=== PATIENT | male | born 1940 | race Caucasian/White ===

== ENCOUNTER 2018-07-20 11:02 | Inpatient (IN) ==
--- NOTE | 2018-07-20 11:38 | ED ---
HPI General Chief Complaint: Respiratory Symptoms Stated Complaint: sob x 3 weeks Time Seen by Provider: 07/20/18 11:19 History of Present Illness HPI Narrative: Patient is a 77-year-old male with history of thyroid disease and high blood pressure, has elevated blood pressure for 1 week, 2 days over than 200. Since yesterday patient noticed shortness of breath together with bilateral leg swelling patient believes his left leg is more swollen than the right. Patient denies COPD or CHF. He is able to speak full sentences, not in obvious distress. Patient denies fever, chest pain. Related Data Home Medications Medication Instructions Recorded Confirmed allopurinol 300 mg PO DAILY 07/20/18 07/20/18 atenolol 25 mg PO DAILY 07/20/18 07/20/18 indomethacin 25 mg PO DAILY PRN 07/20/18 07/20/18 lisinopril [Zestril] 50 mg PO DAILY 07/20/18 07/20/18 omeprazole 20 mg PO DAILY 07/20/18 07/20/18 Allergies Allergy/AdvReac Type Severity Reaction Status Date / Time tetanus and diphtheria Allergy Mild Anaphylaxis Verified 07/20/18 11:07 toxoids codeine Allergy Swelling Verified 07/20/18 11:10 Review of Systems ROS: all other systems reviewed are negative Respiratory Reports dyspnea PMFSH Surgical History Surgical History H/O shoulder surgery (Acute) History of esophagogastroduodenoscopy (Acute) Family History Family History Father Family history of heart disease Mother Family history of heart disease Social History Social History Substance History: No History of Abuse Second Hand Smoke Exposure: No Smoking Status: Former smoker Tobacco Type: Cigarettes How Often Do You Have a Drink Containing Alcohol: Monthly or less Recent Travel in [facility] within the Last 8 Weeks: No Recent Out of Country Travel within the Last 8 Weeks: No Exam Narrative Exam Narrative: GENERAL: 77-year-old male in no apparent distress. SKIN: Focused skin assessment warm/dry. HEAD: Atraumatic. Normocephalic. EYES: Pupils equal and round. No scleral icterus. No injection or drainage. ENT: No nasal bleeding or discharge. Mucous membranes pink and moist. NECK: Trachea midline. No JVD. CARDIOVASCULAR: Regular rate and rhythm. No murmur appreciated. RESPIRATORY: No accessory muscle use. No wheezing, no obvious rhonchi, minimal scattered rales. GASTROINTESTINAL: Abdomen soft, non-tender, nondistended. Hepatic and splenic margins not palpable. MUSCULOSKELETAL: No obvious deformities. No clubbing. No cyanosis. No edema. NEUROLOGICAL: Awake and alert. No obvious cranial nerve deficits. Motor grossly within normal limits. Normal speech. PSYCHIATRIC: Appropriate mood and affect; insight and judgment normal. Course Initial Documented Vital Signs Temperature 97.5 F L 07/20/18 11:07 Pulse Rate 79 07/20/18 11:07 Respiratory Rate 20 07/20/18 11:07 Blood Pressure 200/79 H 07/20/18 11:07 Pulse Oximetry 98 07/20/18 11:07 Last Documented Vital Signs Temperature 97.5 F L 07/20/18 11:07 Pulse Rate 65 07/20/18 14:57 Respiratory Rate 18 07/20/18 14:57 Blood Pressure 167/69 H 07/20/18 14:57 Pulse Oximetry 98 07/20/18 14:57 Medical Decision Making MDM Narrative Medical decision making narrative: Patient is a 77-year-old male with history of high blood pressure, presented with dyspnea, will have cardiac workup and PE workup ordered. Reevaluation is pending. 1500: Labs noted, first set of troponin is negative, CAT scan did not show any blood clots, patient has new onset of congestive heart failure, BNP is over than 300, hemoglobin is 6.9, his stool is guaiac positive. Patient will be admitted to medicine for further evaluation and treatment. Blood transfusion ordered. Protonix given. Medical Screen Exam Complete: Yes Emergency Medical Condition: Yes Lab Data Result diagrams: 07/20/18 11:45 07/20/18 11:45 Lab Results 07/20/18 07/20/18 07/20/18 Range/Units 11:45 11:45 11:45 CBC w Diff Slide review pending WBC 7.6 (4.0-11.0) th/mm3 RBC 3.10 L (4.50-5.90) mil/mm3 Hgb 6.9 L* (13.0-17.0) gm/dL Hct 22.8 L (39.0-51.0) % MCV 73.8 L (80.0-100.0) fL MCH 22.2 L (27.0-34.0) pg MCHC 30.1 L (32.0-36.0) % RDW 17.9 H (11.6-17.2) % Plt Count 222 (150-450) th/mm3 MPV 8.2 (7.0-11.0) fL Neut % (Auto) 49.1 (16.0-70.0) % Lymph % (Auto) 40.0 (9.0-44.0) % [place] % (Auto) 6.5 (0.0-8.0) % Eos % (Auto) 2.2 (0.0-4.0) % Baso % (Auto) 2.2 H (0.0-2.0) % Neut # (Auto) 3.7 (1.8-7.7) th/mm3 Lymph # (Auto) 3.0 (1.0-4.8) th/mm3 [place] # (Auto) 0.5 (0.0-0.9) th/mm3 Eos # (Auto) 0.2 (0.0-0.4) th/mm3 Baso # (Auto) 0.2 (0.0-0.2) th/mm3 WBC Differential . Diff Scan Auto diff confirmed Differential Comment . D-Dimer Quant (PE/DVT) 0.99 H (0.00-0.50) mg/L FEU Sodium 144 (136-145) meq/L Potassium 4.4 (3.5-5.1) meq/L Chloride 110 H (98-107) meq/L Carbon Dioxide 25.3 (21.0-32.0) meq/L Anion Gap 9 (5-15) meq/L BUN 12 (7-18) mg/dL Creatinine 1.10 (0.60-1.30) mg/dL Estimated GFR 65 L (>89) mL/min Random Glucose 125 H (74-106) mg/dL Calcium 7.4 L* (8.5-10.1) mg/dL Calcium Adj for Albumin 8.0 L (8.5-10.1) mg/dL Total Bilirubin 0.5 (0.2-1.0) mg/dL AST 18 (15-37) U/L ALT 14 (12-78) U/L Alkaline Phosphatase 110 (45-117) U/L Troponin I Less than 0.02 L (0.02-0.05) ng/mL B-Natriuretic Peptide (0-100) pg/mL Total Protein 6.9 (6.4-8.2) g/dL Albumin 3.2 L (3.4-5.0) g/dL Urine Color (Yellw/Straw) Urine Clarity (Clear) Urine pH (5.0-8.5) Ur Specific [place] (1.002-1.035) Urine Protein (Neg-Trace) mg/dL Urine Glucose (UA) (Negative) mg/dL Urine Ketones (Negative) mg/dL Urine Occult Blood (Negative) Urine Nitrate (Negative) Urine Bilirubin (Negative) Urine Urobilinogen (Less than 2) mg/dL Ur Leukocyte Esterase (Negative) Urine WBC (0-5) /hpf Micro UA Comment Ur Microscopic Review Urine Culture Comments MTS Gel Crossmatch 07/20/18 07/20/18 07/20/18 Range/Units 11:45 12:08 13:30 CBC w Diff WBC (4.0-11.0) th/mm3 RBC (4.50-5.90) mil/mm3 Hgb (13.0-17.0) gm/dL Hct (39.0-51.0) % MCV (80.0-100.0) fL MCH (27.0-34.0) pg MCHC (32.0-36.0) % RDW (11.6-17.2) % Plt Count (150-450) th/mm3 MPV (7.0-11.0) fL Neut % (Auto) (16.0-70.0) % Lymph % (Auto) (9.0-44.0) % Clare % (Auto) (0.0-8.0) % Eos % (Auto) (0.0-4.0) % Baso % (Auto) (0.0-2.0) % Neut # (Auto) (1.8-7.7) th/mm3 Lymph # (Auto) (1.0-4.8) th/mm3 [place] # (Auto) (0.0-0.9) th/mm3 Eos # (Auto) (0.0-0.4) th/mm3 Baso # (Auto) (0.0-0.2) th/mm3 WBC Differential Diff Scan Differential Comment D-Dimer Quant (PE/DVT) (0.00-0.50) mg/L FEU Sodium (136-145) meq/L Potassium (3.5-5.1) meq/L Chloride (98-107) meq/L Carbon Dioxide (21.0-32.0) meq/L Anion Gap (5-15) meq/L BUN (7-18) mg/dL Creatinine (0.60-1.30) mg/dL Estimated GFR (>89) mL/min Random Glucose (74-106) mg/dL Calcium (8.5-10.1) mg/dL Calcium Adj for Albumin (8.5-10.1) mg/dL Total Bilirubin (0.2-1.0) mg/dL AST (15-37) U/L ALT (12-78) U/L Alkaline Phosphatase (45-117) U/L Troponin I (0.02-0.05) ng/mL B-Natriuretic Peptide 328 H (0-100) pg/mL Total Protein (6.4-8.2) g/dL Albumin (3.4-5.0) g/dL Urine Color Yellow (Yellw/Straw) Urine Clarity Clear (Clear) Urine pH 6.5 (5.0-8.5) Ur Specific [place] 1.010 (1.002-1.035) Urine Protein 30 H (Neg-Trace) mg/dL Urine Glucose (UA) Negative (Negative) mg/dL Urine Ketones Negative (Negative) mg/dL Urine Occult Blood Negative (Negative) Urine Nitrate Negative (Negative) Urine Bilirubin Negative (Negative) Urine Urobilinogen 0.2 (Less than 2) mg/dL Ur Leukocyte Esterase Negative (Negative) Urine WBC 0-5 (0-5) /hpf Micro UA Comment Culture not ind Ur Microscopic Review Microscopic reviewed Urine Culture Comments Culture not ind MTS Gel Crossmatch See Detail Imaging Data Radiologist's impression: Chest X-Ray 07/20/18 11:31 CONCLUSION: Cardiomegaly with moderate congestive failure Chest CTA 07/20/18 12:37 CONCLUSION: 1. This study is negative for pulmonary embolism. 2. Small pericardial effusion. 3. Small bilateral pleural effusions. 4. Cardiomegaly and coronary artery calcifications. 5. Minimal scattered atelectatic changes bilaterally. 6. Hepatosplenomegaly. 7. Small hiatal hernia. Discharge Plan Discharge Disposition Patient Disposition: ED Admit(ED Internal Use Only) Discharge Condition Condition: Fair Discharge Order Discharge Orders: ED Use Only Admit Order (Routine); Ordered 07/20/18 Ordered By: Jeffery Hidalgo Discharge Details Diagnosis: Symptomatic anemia, Congestive heart failure (CHF), GI bleed Physicians Team ED Provider: Jeffery Hidalgo Primary Care Provider: UNKNOWN, Rxs /Orders / Referrals /Forms Prescriptions: No Action atenolol 25 mg Tablet 25 mg PO DAILY RF: 0 indomethacin 25 mg Capsule 25 mg PO DAILY PRN (Reason: Pain) RF: 0 omeprazole 20 mg Capsule,Delayed Release(Dr/Ec) 20 mg PO DAILY RF: 0 allopurinol 300 mg Tablet 300 mg PO DAILY RF: 0 lisinopril [Zestril] 40 mg Tablet 50 mg PO DAILY RF: 0 Discharge Interventions Interventions: Vital Signs Last Done: 07/20/18 14:57 Status ED Status: Admitted Patient
--- NOTE | 2018-07-20 11:46 | XR ---
EXAM DATE: 07/20/2018 11:43 AM EST AGE/SEX: 77 years / Male INDICATIONS: Elevated blood pressure, shortness of breath, bilateral lower extremity swelling. CLINICAL DATA: This is the patient's initial encounter. Patient reports that signs and symptoms have been present for 2 days and indicates a pain score of 0/10. MEDICAL/SURGICAL HISTORY: Hypertension. Thyroid disease. None. COMPARISON: No prior exams available for comparison. FINDINGS: The heart is enlarged. Moderate interstitial edema is present. There is no evidence consolidation, pl eural effusion or pneumothorax. The portion of the bony skeleton visualized is unremarkable. CONCLUSION: Cardiomegaly with moderate congestive failure Electronically signed by: Troy Allen MD Board Certified Radiologist 07/20/2018 11:44 AM EST
[2018-07-20 12:02] LABS: Baso # (Auto) 0.2 th/mm3 (0.0-0.2); Baso % (Auto) 2.2 % (0.0-2.0); Eos # (Auto) 0.2 th/mm3 (0.0-0.4); Eos % (Auto) 2.2 % (0.0-4.0); Hematocrit 22.8 % (39.0-51.0); Mean Corpuscular Hemoglobin 22.2 pg (27.0-34.0); Mean Corpuscular Volume 73.8 fL (80.0-100.0); Mean Platelet Volume 8.2 fL (7.0-11.0); Mono # (Auto) 0.5 th/mm3 (0.0-0.9); Mono % (Auto) 6.5 % (0.0-8.0); Neut # (Auto) 3.7 th/mm3 (1.8-7.7); Neut % (Auto) 49.1 % (16.0-70.0); Platelet Count 222 th/mm3 (150-450); Red Cell Distribution Width 17.9 % (11.6-17.2); White Blood Count 7.6 th/mm3 (4.0-11.0)
[2018-07-20 12:03] LABS: Mean Corpuscular HGB Conc 30.1 % (32.0-36.0)
[2018-07-20 12:05] LABS: Hemoglobin 6.9 gm/dL (13.0-17.0)
[2018-07-20 12:07] LABS: Chloride 110 meq/L (98-107); Potassium 4.4 meq/L (3.5-5.1); Sodium 144 meq/L (136-145)
[2018-07-20 12:25] LABS: Bilirubin,Urine Negative (Negative); Clarity,Urine Clear (Clear); Color,Urine Yellow (Yellw/Straw); Glucose,Urine (UA) Negative (Negative); Leukocyte Esterase,Urine Negative (Negative); Nitrite,Urine Negative (Negative); PH,Urine 6.5 (5.0-8.5); Urobilinogen,Urine 0.2 mg/dL (Less than 2)
[2018-07-20 12:27] LABS: WBC,Urine 0-5 /hpf (0-5)
[2018-07-20] MEDS ORDERED: Sodium Chlor 0.9% Inj 250 ML IV.SIG SCH (13:00)
[2018-07-20 13:28] LABS: Alanine Aminotransferase 14 U/L (12-78); Albumin 3.2 g/dL (3.4-5.0); Alkaline Phosphatase 110 U/L (45-117); Anion Gap 9 meq/L (5-15); Aspartate Aminotransferase 18 U/L (15-37); Blood Urea Nitrogen 12 mg/dL (7-18); Calcium 7.4 mg/dL (8.5-10.1); Carbon Dioxide 25.3 meq/L (21.0-32.0); Glomerular Filtration Rate 65 mL/min (>89); Glucose,Random 125 mg/dL (74-106); Total Protein 6.9 g/dL (6.4-8.2)
[2018-07-20] MEDS ORDERED: Pantoprazole Inj 40 MG Vial IV.PUSH ONE (13:35)
[2018-07-20] MEDS ORDERED: hydrALAZINE HCl Inj 20 MG/ML Vial IV.PUSH ONE (14:20)
--- NOTE | 2018-07-20 14:28 | CT ---
EXAM DATE: 07/20/2018 2:07 PM EST AGE/SEX: 77 years / Male INDICATIONS: Short of breath. CLINICAL DATA: This is the patient's initial encounter. Patient reports that signs and symptoms have been present for 2 weeks and indicates a pain score of 0/10. MEDICAL/SURGICAL HISTORY: Diabetes. Hypertension. None. RADIATION DOSE: 19.24 CTDI (mGy) COMPARISON: No prior exams available for comparison. TECHNIQUE: Volumetric scanning was performed using a multi-row detector CT scanner during bolus infu soha of 75 ml Omnipaque 350 (iohexol) nonionic water-soluble contrast as a single exam dose. The mitzi a was post processed with a variety of visualization algorithms including full volume maximum intensi ty projection and sliding thin slab reformation. Using automated exposure control and adjustment of t he mA and/or kV according to patient size, radiation dose was kept as low as reasonably achievable to obtain optimal diagnostic quality images. DICOM format image data is available electronically for r eview and comparison. FINDINGS: Pulmonary Arteries: No filling defects are seen in the pulmonary arteries out to the subsegmental ve ssels. The left and right pulmonary arteries are normal in diameter. Lung: Minimal scattered atelectatic changes are noted. No pulmonary nodule or mass is noted. No foca l lobar pneumonia is noted. Effusion: Small bilateral pleural effusions are noted. Mediastinum: The heart is enlarged. Coronary artery calcifications are noted. Small pericardial effu soha is noted. Other: The axilla is unremarkable. Hepatosplenomegaly is noted. Small hiatal hernia is noted. CONCLUSION: 1. This study is negative for pulmonary embolism. 2. Small pericardial effusion. 3. Small bilateral pleural effusions. 4. Cardiomegaly and coronary artery calcifications. 5. Minimal scattered atelectatic changes bilaterally. 6. Hepatosplenomegaly. 7. Small hiatal hernia. Electronically signed by: Hamlet Garcia MD Board Certified Radiologist 07/20/2018 2:27 PM EST
--- NOTE | 2018-07-20 15:50 | P.HP ---
History of Present Illness Primary Care Physician: UNKNOWN Chief Complaint: Shortness of breath History of Present Illness: 77-year-old male with known history of hypertension, borderline diabetes, gouty arthritis who presented to the hospital for evaluation of shortness of breath. Patient has recently moved down here and has not located a primary medical doctor and he will be getting [employer] [facility] insurance at the first of the year. The patient indicates her last 2 weeks he has had progressive shortness of breath and dyspnea, dyspnea on exertion, orthopnea. Patient has been sleeping in a recliner in order to be able to breathe at night. He is only able to walk approximately 10 feet without having to stop and take a break. The patient came to the emergency department for evaluation and was found to have multiple medical problems with congestive heart failure, accelerated hypertension, anemia with heme positive stool. It is recommended by the ER physician that the patient be admitted for further evaluation and management. The patient denies any chest pain, nausea, vomiting, diaphoresis. He has been experiencing shortness of breath, dyspnea on exertion, orthopnea. He did notice dark colored stools this morning. The patient does take indomethacin on a regular basis for his gouty arthritis. He states last time he had endoscopy was 5 years ago at that time he states that he had esophageal dilatation done at least 3 times. - Diagnosis (1) Shortness of breath (2) Congestive heart failure (3) Accelerated hypertension (4) Acute anemia (5) Melena Review of Systems All other systems reviewed negative except as stated in HPI Cardiovascular: Reports shortness of breath with activity, Reports shortness of breath when lying down Respiratory: Reports shortness of breath with activity [facility] - History History Provided By: Patient - Medical History Medical History: Medical History (Last Reviewed 07/20/18 @ 15:46 by TEENA Vo) Diabetes Gout HTN (hypertension) - Surgical History Surgical History: Surgical History (Last Updated 07/20/18 @ 15:46 by TEENA Vo) H/O shoulder surgery History of esophagogastroduodenoscopy - Family History Family History: Family History (Last Updated 07/20/18 @ 15:45 by TEENA Vo) Father Family history of heart disease Mother Family history of heart disease - Tobacco History Second Hand Smoke Exposure: No Tobacco Use In Past 30 Days: No Smoking Status: Former smoker Tobacco Type: Cigarettes - Alcohol History How Often Do You Have a Drink Containing Alcohol: Monthly or less - Substance Use History Substance History: No History of Abuse - Travel History Recent Travel in the [place] Within the Last 8 Weeks: No Recent Travel Out of the Country Within the Last 8 Weeks: No - Immunization History Tetanus Immunization: Unsure Medications and Allergies Active Medications: Active Medications Sodium Chloride (Ns Inj) 250 mls @ 15 mls/hr IV.SIG ONCE HERMELINDO Stop: 07/21/18 05:39 Allergies Allergy/AdvReac Type Severity Reaction Status Date / Time tetanus and diphtheria Allergy Mild Anaphylaxis Verified 07/20/18 11:07 toxoids codeine Allergy Swelling Verified 07/20/18 11:10 Home Medications Medication Instructions Recorded Confirmed Type allopurinol 300 mg PO DAILY 07/20/18 07/20/18 History atenolol 25 mg PO DAILY 07/20/18 07/20/18 History indomethacin 25 mg PO DAILY PRN 07/20/18 07/20/18 History lisinopril [Zestril] 50 mg PO DAILY 07/20/18 07/20/18 History omeprazole 20 mg PO DAILY 07/20/18 07/20/18 History Exam Vital signs: Vital Signs 07/20/18 11:07 07/20/18 11:10 07/20/18 11:31 Temperature 97.5 F L Pulse Rate 79 Respiratory Rate 20 Blood Pressure 200/79 H Pulse Oximetry 98 97 97 07/20/18 12:07 07/20/18 12:45 07/20/18 14:00 Temperature Pulse Rate 62 70 72 Respiratory Rate 20 20 19 Blood Pressure 183/93 H 182/78 H 185/82 H Pulse Oximetry 99 97 98 07/20/18 14:43 07/20/18 14:57 Temperature Pulse Rate 63 65 Respiratory Rate 20 18 Blood Pressure 177/95 H 167/69 H Pulse Oximetry 98 98 Intake & Output 07/19/18 07/20/18 07/20/18 18:59 06:59 18:59 Output Total 900 / 900 Balance -900 / -900 Weight 98.6 kg Output: Urine 900 / 900 Narrative: GENERAL: Well-developed, well-nourished, in no acute distress. alert and orientated HEENT: Head is normocephalic without any lesions or masses noted. Facial features are symmetric. Eyes: Pupils equal round reactive to light. Extraocular muscles are intact. Conjunctivae were clear. Oropharyngeal: Pharynx without any erythema edema. Tongue is midline without deviation. Buccal mucosa is moist without any masses or lesions NECK: Supple without any masses. Trachea midline no deviation. No JVD, no bruits are appreciated CARDIAC: Regular rhythm, regular rate. S1/S2 are heard. No murmurs gallops or rubs. LUNGS: Clear to auscultation bilaterally. No wheeze, rhonchi or rales. No use of accessory muscles on inspiration or expiration. ABDOMEN: Soft, nontender. Nondistended. Bowel sounds heard in all 4 quadrants. No organomegaly or masses. Negative rebound, negative guarding EXTREMITIES: No edema, pulses are equal bilaterally. No cyanosis or clubbing NEUROLOGY: Mood and affect appear appropriate. Cranial nerves II through XII grossly intact. Muscle strength 5/5 in upper and lower extremities bilaterally. Deep tendon reflexes are 2+ in upper and lower extremities bilaterally. Results - Labs CBC & Chem 7: 07/20/18 11:45 07/20/18 11:45 Labs: Laboratory Results - last 24 hr 07/20/18 07/20/18 07/20/18 11:45 11:45 11:45 CBC w Diff Slide review pending WBC 7.6 RBC 3.10 L Hgb 6.9 L* Hct 22.8 L MCV 73.8 L MCH 22.2 L MCHC 30.1 L RDW 17.9 H Plt Count 222 MPV 8.2 Neut % (Auto) 49.1 Lymph % (Auto) 40.0 [place] % (Auto) 6.5 Eos % (Auto) 2.2 Baso % (Auto) 2.2 H Neut # (Auto) 3.7 Lymph # (Auto) 3.0 [place] # (Auto) 0.5 Eos # (Auto) 0.2 Baso # (Auto) 0.2 WBC Differential . Diff Scan Auto diff confirmed Differential Comment . D-Dimer Quant (PE/DVT) 0.99 H Sodium 144 Potassium 4.4 Chloride 110 H Carbon Dioxide 25.3 Anion Gap 9 BUN 12 Creatinine 1.10 Estimated GFR 65 L Random Glucose 125 H Calcium 7.4 L* Calcium Adj for Albumin 8.0 L Total Bilirubin 0.5 AST 18 ALT 14 Alkaline Phosphatase 110 Troponin I Less than 0.02 L B-Natriuretic Peptide Total Protein 6.9 Albumin 3.2 L Urine Color Urine Clarity Urine pH Ur Specific [place] Urine Protein Urine Glucose (UA) Urine Ketones Urine Occult Blood Urine Nitrate Urine Bilirubin Urine Urobilinogen Ur Leukocyte Esterase Urine WBC Micro UA Comment Ur Microscopic Review Urine Culture Comments MTS Gel Crossmatch 07/20/18 07/20/18 07/20/18 11:45 12:08 13:30 CBC w Diff WBC RBC Hgb Hct MCV MCH MCHC RDW Plt Count MPV Neut % (Auto) Lymph % (Auto) [place] % (Auto) Eos % (Auto) Baso % (Auto) Neut # (Auto) Lymph # (Auto) [place] # (Auto) Eos # (Auto) Baso # (Auto) WBC Differential Diff Scan Differential Comment D-Dimer Quant (PE/DVT) Sodium Potassium Chloride Carbon Dioxide Anion Gap BUN Creatinine Estimated GFR Random Glucose Calcium Calcium Adj for Albumin Total Bilirubin AST ALT Alkaline Phosphatase Troponin I B-Natriuretic Peptide 328 H Total Protein Albumin Urine Color Yellow Urine Clarity Clear Urine pH 6.5 Ur Specific [place] 1.010 Urine Protein 30 H Urine Glucose (UA) Negative Urine Ketones Negative Urine Occult Blood Negative Urine Nitrate Negative Urine Bilirubin Negative Urine Urobilinogen 0.2 Ur Leukocyte Esterase Negative Urine WBC 0-5 Micro UA Comment Culture not ind Ur Microscopic Review Microscopic reviewed Urine Culture Comments Culture not ind MTS Gel Crossmatch See Detail - Imaging Impressions Chest X-Ray 07/20/18 11:31 CONCLUSION: Cardiomegaly with moderate congestive failure Chest CTA 07/20/18 12:37 CONCLUSION: 1. This study is negative for pulmonary embolism. 2. Small pericardial effusion. 3. Small bilateral pleural effusions. 4. Cardiomegaly and coronary artery calcifications. 5. Minimal scattered atelectatic changes bilaterally. 6. Hepatosplenomegaly. 7. Small hiatal hernia. Caprini VTE Risk Assessment Caprini VTE Risk Assessment: Moderate/High Risk (score >= 2) Caprini Risk Assessment Model: Point Value = 1 Point Value = 2 Point Value = 3 Point Value = 5 Age 41-60 Minor surgery BMI > 25 kg/m2 Swollen legs Varicose veins or History of unexplained or recurrent spontaneous Oral contraceptives or hormone replacement Sepsis (< 1 month) Serious lung disease, including pneumonia (< 1 month) Abnormal pulmonary function Acute myocardial infarction Congestive heart failure (< 1 month) History of inflammatory bowel disease Medical patient at bed rest Age 61-74 Arthroscopic surgery Major open surgery (> 45 min) Laparoscopic surgery (> 45 min) Malignancy Confined to bed (> 72 hours) Immobilizing plaster cast Central venous access Age >= 75 History of VTE Family history of VTE Factor V Leiden Prothrombin [id number] Lupus anticoagulant Anticardiolipin antibodies Elevated serum homocysteine Heparin-induced thrombocytopenia Other congenital or acquired thrombophilia Stroke (< 1 month) Elective arthroplasty Hip, pelvis, or leg fracture Acute spinal cord injury (< 1 month) Prophylaxis Regimen: Total Risk Factor Score Risk Level Prophylaxis Regimen 0-1 Low Early ambulation 2 Moderate Order ONE of the following: *Sequential Compression Device (SCD) *Heparin 5000 units SQ BID 3-4 Higher Order ONE of the following medications: *Heparin 5000 units SQ TID *Enoxaparin/Lovenox 40 mg SQ daily (WT < 150 kg, CrCl > 30 mL/min) *Enoxaparin/Lovenox 30 mg SQ daily (WT < 150 kg, CrCl > 10-29 mL/min) *Enoxaparin/Lovenox 30 mg SQ BID (WT < 150 kg, CrCl > 30 mL/min) AND/OR *Sequential Compression Device (SCD) 5 or more Highest Order ONE of the following medications: *Heparin 5000 units SQ TID (Preferred with Epidurals) *Enoxaparin/Lovenox 40 mg SQ daily (WT < 150 kg, CrCl > 30 mL/min) *Enoxaparin/Lovenox 30 mg SQ daily (WT < 150 kg, CrCl > 10-29 mL/min) *Enoxaparin/Lovenox 30 mg SQ BID (WT < 150 kg, CrCl > 30 mL/min) AND *Sequential Compression Device (SCD) Assessment and Plan - Assessment (1) Shortness of breath Code(s): R06.02 - Shortness of breath Status: Acute (2) Congestive heart failure Code(s): I50.9 - Heart failure, unspecified Status: Acute (3) Accelerated hypertension Code(s): I10 - Essential (primary) hypertension Status: Acute (4) Acute anemia Code(s): D64.9 - Anemia, unspecified Status: Acute (5) Melena Code(s): K92.1 - Melena Status: Acute - Plan Congestive heart failure, acute -Patient with elevated BNP, chest x-ray with cardiomegaly and moderate congestive heart failure, CT scan does show small pericardial effusion, bilateral pleural effusions -Continue diuresis Lasix 40 mg IV twice daily with supplemental potassium -Obtain echocardiogram -Continue to trend cardiac enzymes and EKGs -Patient will be continued on his beta-itzel and MARY inhibitor -Consult cardiology for further recommendations -Strict input and output with fluid restriction Anemia with heme positive stool and melena -Patient also with decreased MCV which could also be related to iron deficiency -Obtain anemia studies -Start Protonix IV twice daily -Transfuse to keep hemoglobin above 8.0 -Consult GI for further recommendations -Can start clear liquid diet Accelerated hypertension -Continue home medications Diabetes -Accu-Cheks with sliding scale insulin DVT prevention -Sequential compression devices, avoid chemical prophylaxis secondary to GI bleed
[2018-07-20] MEDS ORDERED: Dextrose 50% in Water 50 ML Vial IV.PUSH PRN (15:57)
--- NOTE | 2018-07-20 17:47 | P.CONGI ---
History of Present Illness Consult reason: Anemia, possible occult GI bleeding Chief complaint: Symptomatic anemia.GI bleed.New-onset of congestiv History of Present Illness: Patient is a 77-year-old male who was admitted to the hospital with history of worsening shortness of breath for the last 2 weeks. Workup in the ER showed presence of severe anemia with microcytosis and heme positive stools suggesting GI bleeding. He gives history of having an episode of dark stool suggestive of melena today. He denies any history of hematemesis or hematochezia. There is no history of significant heartburn dysphagia nausea vomiting constipation diarrhea jaundice ascites edema anorexia or weight loss. Review of Systems Respiratory: Reports shortness of breath, Reports shortness of breath with activity Gastrointestinal: Reports black, tarry stools PMFSH - History History Provided By: Patient - Medical History Medical History: Medical History (Last Reviewed 07/20/18 @ 15:46 by TEENA Vo) Diabetes Gout HTN (hypertension) - Surgical History Surgical History: Surgical History (Last Updated 07/20/18 @ 15:46 by TEENA Vo) H/O shoulder surgery History of esophagogastroduodenoscopy - Family History Family History: Family History (Last Updated 07/20/18 @ 15:45 by TEENA Vo) Father Family history of heart disease Mother Family history of heart disease - Tobacco History Second Hand Smoke Exposure: No Tobacco Use In Past 30 Days: No Smoking Status: Former smoker Tobacco Type: Cigarettes - Alcohol History How Often Do You Have a Drink Containing Alcohol: Monthly or less - Substance Use History Substance History: No History of Abuse - Travel History Recent Travel in the [facility] Within the Last 8 Weeks: No Recent Travel Out of the Country Within the Last 8 Weeks: No - Immunization History Tetanus Immunization: Unsure Medications and Allergies Active Medications: Active Medications Atenolol (Tenormin) 25 mg PO DAILY HER[facility] Dextrose (D50w Vial) 50 ml IV.PUSH UNSCH PRN PRN Reason: PER HYPOGLYCEMIA PROTOCOL Furosemide (Lasix Inj) 40 mg IV.PUSH BID@0900,1800 HER[facility] Glucagon (Glucagon Inj) 1 mg OTHER PRN PRN PRN Reason: for Hypoglycemia Protocol Sodium Chloride (Ns Inj) 250 mls @ 15 mls/hr IV.SIG ONCE HERMELINDO Stop: 07/21/18 05:39 Insulin Aspart (Novolog Insulin Correctional Sugar Inj) 0 unit SQ ACHS HERMEL[facility]; Protocol Lisinopril (Prinivil) 40 mg PO DAILY [facility] Pantoprazole Sodium (Protonix Inj) 40 mg IV.PUSH BID HERM[facility] Potassium Chloride (Klor-Con 10) 10 meq PO BID [facility] Sodium Chloride (Ns Flush) 2 ml IV.FLUSH BID HERM[facility] Sodium Chloride (Ns Flush) 2 ml IV.FLUSH PRN PRN PRN Reason: FLUSH AFTER USING IV ACCESS Allergies Allergy/AdvReac Type Severity Reaction Status Date / Time tetanus and diphtheria Allergy Mild Anaphylaxis Verified 07/20/18 11:07 toxoids codeine Allergy Swelling Verified 07/20/18 11:10 Home Medications Medication Instructions Recorded Confirmed Type allopurinol 300 mg PO DAILY 07/20/18 07/20/18 History atenolol 25 mg PO DAILY 07/20/18 07/20/18 History indomethacin 25 mg PO DAILY PRN 07/20/18 07/20/18 History lisinopril [Zestril] 50 mg PO DAILY 07/20/18 07/20/18 History omeprazole 20 mg PO DAILY 07/20/18 07/20/18 History Exam Vital signs: Vital Signs 07/20/18 11:07 07/20/18 11:10 07/20/18 11:31 Temperature 97.5 F L Pulse Rate 79 Respiratory Rate 20 Blood Pressure 200/79 H Pulse Oximetry 98 97 97 07/20/18 12:07 07/20/18 12:45 07/20/18 14:00 Temperature Pulse Rate 62 70 72 Respiratory Rate 20 20 19 Blood Pressure 183/93 H 182/78 H 185/82 H Pulse Oximetry 99 97 98 07/20/18 14:43 07/20/18 14:57 07/20/18 16:31 Temperature Pulse Rate 63 65 63 Respiratory Rate 20 18 20 Blood Pressure 177/95 H 167/69 H 161/82 H Pulse Oximetry 98 98 97 Intake & Output 07/19/18 07/20/18 07/20/18 18:59 06:59 18:59 Output Total 1300 / 1300 Balance -1300 / -1300 Weight 98.6 kg Output: Urine 1300 / 1300 - Constitutional mild distress, moderate distress - Routine HEENT Exam Head: Present: normocephalic Eye: Present: EOMI, PERRL - Routine Respiratory Exam Present: rales, rhonchi, wheezes, crackles, diminished air movement - Routine Cardiovascular Exam Present: murmur - Routine Extremities Exam Present: edema Results - Labs CBC & Chem 7: 07/20/18 11:45 07/20/18 11:45 Labs: Laboratory Results - last 24 hr 07/20/18 07/20/18 07/20/18 11:45 11:45 11:45 CBC w Diff Slide review pending WBC 7.6 RBC 3.10 L Hgb 6.9 L* Hct 22.8 L MCV 73.8 L MCH 22.2 L MCHC 30.1 L RDW 17.9 H Plt Count 222 MPV 8.2 Neut % (Auto) 49.1 Lymph % (Auto) 40.0 [place] % (Auto) 6.5 Eos % (Auto) 2.2 Baso % (Auto) 2.2 H Neut # (Auto) 3.7 Lymph # (Auto) 3.0 [place] # (Auto) 0.5 Eos # (Auto) 0.2 Baso # (Auto) 0.2 WBC Differential . Diff Scan Auto diff confirmed Differential Comment . D-Dimer Quant (PE/DVT) 0.99 H Sodium 144 Potassium 4.4 Chloride 110 H Carbon Dioxide 25.3 Anion Gap 9 BUN 12 Creatinine 1.10 Estimated GFR 65 L Random Glucose 125 H Calcium 7.4 L* Calcium Adj for Albumin 8.0 L Total Bilirubin 0.5 AST 18 ALT 14 Alkaline Phosphatase 110 Troponin I Less than 0.02 L B-Natriuretic Peptide Total Protein 6.9 Albumin 3.2 L Urine Color Urine Clarity Urine pH Ur Specific [place] Urine Protein Urine Glucose (UA) Urine Ketones Urine Occult Blood Urine Nitrate Urine Bilirubin Urine Urobilinogen Ur Leukocyte Esterase Urine WBC Micro UA Comment Ur Microscopic Review Urine Culture Comments Blood Type Antibody Screen MTS Gel Crossmatch 07/20/18 07/20/18 07/20/18 11:45 12:08 13:30 CBC w Diff WBC RBC Hgb Hct MCV MCH MCHC RDW Plt Count MPV Neut % (Auto) Lymph % (Auto) [place] % (Auto) Eos % (Auto) Baso % (Auto) Neut # (Auto) Lymph # (Auto) [place] # (Auto) Eos # (Auto) Baso # (Auto) WBC Differential Diff Scan Differential Comment D-Dimer Quant (PE/DVT) Sodium Potassium Chloride Carbon Dioxide Anion Gap BUN Creatinine Estimated GFR Random Glucose Calcium Calcium Adj for Albumin Total Bilirubin AST ALT Alkaline Phosphatase Troponin I B-Natriuretic Peptide 328 H Total Protein Albumin Urine Color Yellow Urine Clarity Clear Urine pH 6.5 Ur Specific [place] 1.010 Urine Protein 30 H Urine Glucose (UA) Negative Urine Ketones Negative Urine Occult Blood Negative Urine Nitrate Negative Urine Bilirubin Negative Urine Urobilinogen 0.2 Ur Leukocyte Esterase Negative Urine WBC 0-5 Micro UA Comment Culture not ind Ur Microscopic Review Microscopic reviewed Urine Culture Comments Culture not ind Blood Type O Positive Antibody Screen Negative MTS Gel Crossmatch See Detail - Imaging Impressions Chest X-Ray 07/20/18 11:31 CONCLUSION: Cardiomegaly with moderate congestive failure Chest CTA 07/20/18 12:37 CONCLUSION: 1. This study is negative for pulmonary embolism. 2. Small pericardial effusion. 3. Small bilateral pleural effusions. 4. Cardiomegaly and coronary artery calcifications. 5. Minimal scattered atelectatic changes bilaterally. 6. Hepatosplenomegaly. 7. Small hiatal hernia. Assessment and Plan - Plan 1. Severe microcytic anemia likely due to GI bleeding history of melena suggests upper GI source. 2. Continue present supportive treatment, including transfusion of packed red cells 3. Monitor serial labs 4. IV Protonix 40 twice daily 5. EGD and colonoscopy after cardiorespiratory stabilization. Patient would need a cardiac consult too
[2018-07-20 18:09] LABS: Creatine Kinase 41 U/L (39-308)
[2018-07-20] MEDS: Insulin NovoLOG Aspart Correctional Sugar Inj SQ SCH ×2 (18:16→20:22)
[2018-07-20] MEDS ORDERED: Pantoprazole Inj 40 MG Vial IV.PUSH SCH ×2 (21:00→23:00)
--- NOTE | 2018-07-20 21:14 | MB ---
cc: Nico Esparza MD DATE: 07/20/2018 HISTORY OF PRESENT ILLNESS: Jung is a very pleasant 77-year-old gentleman who presents with chief complaint of shortness of breath to the emergency room at [place]. Currently, he is receiving a blood transfusion. He otherwise denies any overt GI or bleeding or other sources of blood loss. Denies chest pain, fevers, chills, cough, or GI or bleeding, or PND, orthopnea, syncope, or dizziness. PAST MEDICAL HISTORY: Diabetes, gout, hypertension, shoulder surgery, status post EGD. ALLERGIES: TETANUS AND CODEINE. SOCIAL HISTORY: He is a former smoker. He drinks alcohol 4 or more times a week. MEDICATIONS: In the hospital: 1. Lasix 40 mg IV b.i.d. 2. Insulin. 3. Lisinopril 40 mg daily. 4. Pantoprazole 40 mg IV b.i.d. 5. Potassium 10 mEq b.i.d. PHYSICAL EXAMINATION: VITAL SIGNS: Blood pressure 164/77, pulse 77, respiratory rate 20, temperature 97.5. GENERAL: He is alert and oriented x3, in no acute distress. NECK: Supple. No JVD. No bruit. CARDIOVASCULAR: S1, S2. No murmurs, rubs, or gallops. LUNGS: Coarse bilaterally. ABDOMEN: Soft, nontender, nondistended with positive bowel sounds. EXTREMITIES: Lower extremity edema. LABORATORY DATA: Chest x-ray shows cardiomegaly with moderate congestive heart failure. Chest CTA: Negative for pulmonary embolus. Small pericardial effusion, small bilateral pleural effusions, cardiomegaly and coronary artery calcifications, scattered atelectatic changes bilaterally, hepatosplenomegaly, small hiatal hernia. White count 7.6, hemoglobin 6.9, hematocrit 22.8, platelet count 222. INR is not performed. D-dimer is 0.99. Sodium 144, potassium 4.4, chloride 110, bicarbonate 25.3, BUN 12, creatinine 1.10. Troponins less than 0.02 x2. BNP is 328. FINAL DIAGNOSES: 1. Decompensated congestive heart failure. 2. Anemia. 3. Hypocalcemia. 4. Hypoalbuminemia. 5. Dyspnea. 6. Hypertension. DISCUSSION: At this point of time, I would like to get it EKG, also 2-D echo. Suspect his dyspnea and decompensated congestive heart failure may be secondary to anemia but again definitely will check a 2D echo and EKG, and after blood transfusion, we will then reassess and determine the patient's cardiac risk for noncardiac procedure. MD ROSA Mckeon/michelet , 08:25 PM , 08:33 PM
[2018-07-20 21:45] LABS: Reticulocyte Percent 1.5 % (0.4-3.0)
[2018-07-20 22:01] LABS: % Iron Saturation 4.1 % (20-50); Iron 17 mcg/dL (65-175); Lactate Dehydrogenase 138 U/L (87-241); Total Iron Binding Capacity 419 mcg/dL (250-450)
[2018-07-20 22:26] LABS: Ferritin 6 ng/mL (26-388); Vitamin B12 318 pg/mL (193-986)
[2018-07-20 23:08] LABS: Creatine Kinase 48 U/L (39-308)
[2018-07-20 23:58] LABS: Haptoglobin 118 mg/dL (30-200)
[2018-07-21 04:15] LABS: Baso # (Auto) 0.2 th/mm3 (0.0-0.2); Eos # (Auto) 0.2 th/mm3 (0.0-0.4); Eos % (Auto) 2.5 % (0.0-4.0); Hematocrit 27.4 % (39.0-51.0); Hemoglobin 8.6 gm/dL (13.0-17.0); Lymph # (Auto) 3.6 th/mm3 (1.0-4.8); Lymph % (Auto) 37.9 % (9.0-44.0); Mean Corpuscular HGB Conc 31.4 % (32.0-36.0); Mean Corpuscular Hemoglobin 24.3 pg (27.0-34.0); Mean Corpuscular Volume 77.6 fL (80.0-100.0); Mono # (Auto) 0.6 th/mm3 (0.0-0.9); Mono % (Auto) 5.8 % (0.0-8.0); Neut % (Auto) 51.8 % (16.0-70.0); Platelet Count 212 th/mm3 (150-450); Red Blood Count 3.53 mil/mm3 (4.50-5.90); Red Cell Distribution Width 18.9 % (11.6-17.2); White Blood Count 9.6 th/mm3 (4.0-11.0)
[2018-07-21 04:48] LABS: Alanine Aminotransferase 13 U/L (12-78); Albumin 3.1 g/dL (3.4-5.0); Alkaline Phosphatase 109 U/L (45-117); Anion Gap 7 meq/L (5-15); Aspartate Aminotransferase 14 U/L (15-37); Blood Urea Nitrogen 13 mg/dL (7-18); Calcium 7.6 mg/dL (8.5-10.1); Carbon Dioxide 27.7 meq/L (21.0-32.0); Chloride 107 meq/L (98-107); Glomerular Filtration Rate 59 mL/min (>89); Glucose,Random 99 mg/dL (74-106); Potassium 3.5 meq/L (3.5-5.1); Sodium 142 meq/L (136-145); Total Protein 6.8 g/dL (6.4-8.2)
[2018-07-21 04:49] LABS: Creatine Kinase 60 U/L (39-308)
[2018-07-21] MEDS ORDERED: PEG 3350/E-Lyte Soln 4000 ML Bottle PO SCH (08:00)
[2018-07-21] MEDS ORDERED: Atenolol 25 MG Tablet PO SCH (09:00)
[2018-07-21] MEDS ORDERED: LISINOPRIL PO SCH (09:00)
[2018-07-21] MEDS ORDERED: Atenolol 50 MG Tablet PO SCH (09:46)
--- NOTE | 2018-07-21 09:46 | P.PNIM ---
Subjective Interval history: 77-year-old male seen examined today for follow-up on congestive heart failure, anemia. Patient states that he does feel much better today. Patient blood pressure mildly elevated. Patient remains afebrile. Physical Exam Vital signs: Last Vital Signs Temp 96.2 F L 07/21/18 07:54 Pulse 66 07/21/18 07:54 Resp 20 07/21/18 07:54 BP 159/87 H 07/21/18 07:54 Pulse Ox 97 07/21/18 07:54 Intake & Output 07/19/18 07/20/18 07/21/18 07/22/18 06:59 06:59 06:59 06:59 Intake Total 980 / 980 Output Total 3550 / 3550 275 / 275 Balance -2570 / -2570 -275 / -275 Weight 98.6 kg Narrative: GENERAL: Well-developed, well-nourished, in no acute distress. alert and orientated HEENT: Head is normocephalic without any lesions or masses noted. Facial features are symmetric. Eyes: Extraocular muscles are intact. Conjunctivae were clear. NECK: Supple without any masses. Trachea midline no deviation. No JVD, CARDIAC: Regular rhythm, regular rate. S1/S2 are heard. No murmurs gallops or rubs. LUNGS: Clear to auscultation bilaterally. No wheeze, rhonchi or rales. No use of accessory muscles on inspiration or expiration. ABDOMEN: Soft, nontender. Nondistended. Bowel sounds heard in all 4 quadrants. No organomegaly or masses. Negative rebound, negative guarding EXTREMITIES: No edema, pulses are equal bilaterally. No cyanosis or clubbing NEUROLOGY: Mood and affect appear appropriate. Cranial nerves II through XII grossly intact. Moving all extremities, speech is clear Results Labs CBC & Chem 7: 07/21/18 04:05 07/21/18 04:05 Imaging Imaging: Impressions Chest X-Ray 07/20/18 11:31 CONCLUSION: Cardiomegaly with moderate congestive failure Chest CTA 07/20/18 12:37 CONCLUSION: 1. This study is negative for pulmonary embolism. 2. Small pericardial effusion. 3. Small bilateral pleural effusions. 4. Cardiomegaly and coronary artery calcifications. 5. Minimal scattered atelectatic changes bilaterally. 6. Hepatosplenomegaly. 7. Small hiatal hernia. Assessment and Plan Plan Congestive heart failure, acute -Patient with elevated BNP, chest x-ray with cardiomegaly and moderate congestive heart failure, CT scan does show small pericardial effusion, bilateral pleural effusions -Continue diuresis Lasix 40 mg IV twice daily with supplemental potassium -Awaiting echocardiogram -Patient has been ruled out for acute coronary event with serial cardiac enzymes remain negative -Patient continued on his beta-itzel and MARY inhibitor -Consulted cardiology for further recommendations, Whom recommended echocardiogram and reassess if patient will require any noncardiac procedure -Strict input and output with fluid restriction Anemia with heme positive stool and melena -Patient also with decreased MCV which could also be related to iron deficiency -Anemia studies are indicating iron deficient anemia -We will start ferrous sulfate 3 and 25 mg twice daily -Continue Protonix IV twice daily -Transfuse to keep hemoglobin above 8.0 -Consulted GI Who is recommending endoscopy studies with cardiac clearance. -Continue clear liquid diet Accelerated hypertension -Continue home medications -We will need to adjust medications for improved blood pressure control Diabetes -Accu-Cheks with sliding scale insulin DVT prevention -Sequential compression devices, avoid chemical prophylaxis secondary to GI bleed Discharge planning Discharge planning once echocardiogram pleaded, endoscopies performed and patient cleared by cardiology and gastroenterology for discharge Progress Note: Quality VTE Deep Vein Thrombosis/Pulmonary Embolism Present on Admission: No
[2018-07-21] MEDS: Insulin NovoLOG Aspart Correctional Sugar Inj SQ SCH ×4 (09:57→22:18)
[2018-07-21] MEDS: Lisinopril 20 MG Tablet PO SCH (09:58)
[2018-07-21] MEDS: Pantoprazole Inj 40 MG Vial IV.PUSH SCH ×2 (09:58→22:23)
[2018-07-21] MEDS: Ferrous Sulfate 325 MG Tablet PO SCH ×2 (10:24→22:23)
[2018-07-21] MEDS: amLODIPine 5 MG Tablet PO SCH (10:24)
--- NOTE | 2018-07-21 15:18 | P.PNCA ---
Subjective Interval history: feels better, ambulating in room, dyspnea improved but still mild Medications and Allergies Active Medications: Active Medications Amlodipine Besylate (Norvasc) 5 mg PO DAILY [facility] Last Admin: 07/21/18 10:24 Dose: 5 mg Atenolol (Tenormin) 50 mg PO DAILY [facility] Dextrose (D50w Vial) 50 ml IV.PUSH UNSCH PRN PRN Reason: PER HYPOGLYCEMIA PROTOCOL Ferrous Sulfate (Ferosul) 325 mg PO BID [facility] Last Admin: 07/21/18 10:24 Dose: 325 mg Furosemide (Lasix Inj) 40 mg IV.PUSH BID@0900,1800 [facility] Last Admin: 07/21/18 09:58 Dose: 40 mg Glucagon (Glucagon Inj) 1 mg OTHER PRN PRN PRN Reason: for Hypoglycemia Protocol Insulin Aspart (Novolog Insulin Correctional Sugar Inj) 0 unit SQ ACHS [facility]; Protocol Last Admin: 07/21/18 13:29 Dose: Not Given Lisinopril (Prinivil) 40 mg PO DAILY [facility] Last Admin: 07/21/18 09:58 Dose: 40 mg Pantoprazole Sodium (Protonix Inj) 40 mg IV.PUSH BID [facility] Last Admin: 07/21/18 09:58 Dose: 40 mg Potassium Chloride (Klor-Con 10) 10 meq PO BID [facility] Last Admin: 07/21/18 09:57 Dose: 10 meq Sodium Chloride (Ns Flush) 2 ml IV.FLUSH BID [facility] Last Admin: 07/21/18 09:58 Dose: 2 ml Sodium Chloride (Ns Flush) 2 ml IV.FLUSH PRN PRN PRN Reason: FLUSH AFTER USING IV ACCESS Allergies Allergy/AdvReac Type Severity Reaction Status Date / Time tetanus and diphtheria Allergy Mild Anaphylaxis Verified 07/20/18 11:07 toxoids codeine Allergy Swelling Verified 07/20/18 11:10 Home Medications Medication Instructions Recorded Confirmed Type allopurinol 300 mg PO DAILY 07/20/18 07/20/18 History atenolol 25 mg PO DAILY 07/20/18 07/20/18 History indomethacin 25 mg PO DAILY PRN 07/20/18 07/20/18 History lisinopril [Zestril] 50 mg PO DAILY 07/20/18 07/20/18 History omeprazole 20 mg PO DAILY 07/20/18 07/20/18 History Physical Exam Vital signs: Vital Signs 07/20/18 16:31 07/20/18 18:04 07/20/18 18:20 Temperature Pulse Rate 63 77 Respiratory Rate 20 20 Blood Pressure 161/82 H 164/77 H Pulse Oximetry 97 07/20/18 20:00 07/20/18 22:15 07/20/18 22:25 Temperature 97 F L 97.5 F L 97.5 F L Pulse Rate 73 70 70 Respiratory Rate 20 18 18 Blood Pressure 173/79 H 150/86 H 150/86 H Pulse Oximetry 96 97 07/20/18 22:42 07/20/18 23:15 07/21/18 00:00 Temperature 97.8 F 97.7 F Pulse Rate 71 76 72 Respiratory Rate 18 20 Blood Pressure 152/85 H 171/83 H Pulse Oximetry 96 96 07/21/18 00:12 07/21/18 01:15 07/21/18 04:00 Temperature 96.7 F L 97.2 F L Pulse Rate 74 67 69 Respiratory Rate 18 20 Blood Pressure 158/75 H 195/87 H Pulse Oximetry 96 95 07/21/18 07:54 07/21/18 08:00 07/21/18 12:00 Temperature 96.2 F L 96 F L Pulse Rate 66 63 Respiratory Rate 20 20 Blood Pressure 159/87 H 171/88 H Pulse Oximetry 97 96 100 Intake & Output 07/20/18 07/21/18 07/21/18 18:59 06:59 18:59 Intake Total 480 / 480 500 / 500 Output Total 1300 / 1300 2250 / 2250 275 / 275 Balance -820 / -820 -1750 / -1750 -275 / -275 Weight 98.6 kg 98.6 kg Intake: Oral 480 / 480 0 / 0 Other 100 / 100 Rbc As-3 Leukoreduced Unit 50 / 50 [id number] Rbc As-3 Leukoreduced Unit 50 / 50 [id number] Intake (Blood Product) Amt 0 / 0 400 / 400 Rbc As-3 Leukoreduced Unit 400 / 400 [id number] Rbc As-3 Leukoreduced Unit 0 / 0 0 / 0 [id number] Output: Urine 1300 / 1300 2250 / 2250 275 / 275 Other: Other Intake Source Rbc As-3 Leukoreduced Unit Saline Solution [id number] Rbc As-3 Leukoreduced Unit Saline Solution [id number] # Voids 1 1 # Bowel Movements 0 - Constitutional no acute distress - Routine HEENT Exam Head: Present: normocephalic - Routine Neck Exam Present: supple - Routine Respiratory Exam Present: CTA bilaterally - Routine Cardiovascular Exam Present: S1, S2 - Routine Abdominal Exam Present: soft - Routine Extremities Exam Comments: no [email or web address] Results 07/21/18 04:05 07/21/18 04:05 Cardiac Enzymes 07/20/18 07/20/18 07/20/18 Range/Units 11:45 11:45 17:35 AST 18 (15-37) U/L Lactate Dehydrogenase 138 (87-241) U/L Troponin I Less than 0.02 L Less than 0.02 L (0.02-0.05) ng/mL B-Natriuretic Peptide 328 H (0-100) pg/mL 07/20/18 07/21/18 Range/Units 22:25 04:05 AST 14 L (15-37) U/L Lactate Dehydrogenase (87-241) U/L Troponin I Less than 0.02 L Less than 0.02 L (0.02-0.05) ng/mL B-Natriuretic Peptide (0-100) pg/mL Coagulation 07/20/18 Range/Units 11:45 B-Natriuretic Peptide 328 H (0-100) pg/mL CBC 07/20/18 07/21/18 Range/Units 11:45 04:05 WBC 7.6 9.6 (4.0-11.0) th/mm3 RBC 3.10 L 3.53 L (4.50-5.90) mil/mm3 Hgb 6.9 L* 8.6 L (13.0-17.0) gm/dL Hct 22.8 L 27.4 L (39.0-51.0) % Plt Count 222 212 (150-450) th/mm3 Neut # (Auto) 3.7 5.0 (1.8-7.7) th/mm3 Lymph # (Auto) 3.0 3.6 (1.0-4.8) th/mm3 [place] # (Auto) 0.5 0.6 (0.0-0.9) th/mm3 Eos # (Auto) 0.2 0.2 (0.0-0.4) th/mm3 Baso # (Auto) 0.2 0.2 (0.0-0.2) th/mm3 Comprehensive Metabolic Panel 07/20/18 07/21/18 Range/Units 11:45 04:05 Sodium 144 142 (136-145) meq/L Potassium 4.4 3.5 D (3.5-5.1) meq/L Chloride 110 H 107 (98-107) meq/L Carbon Dioxide 25.3 27.7 (21.0-32.0) meq/L BUN 12 13 (7-18) mg/dL Creatinine 1.10 1.20 (0.60-1.30) mg/dL Calcium 7.4 L* 7.6 L (8.5-10.1) mg/dL AST 18 14 L (15-37) U/L ALT 14 13 (12-78) U/L Alkaline Phosphatase 110 109 (45-117) U/L Total Protein 6.9 6.8 (6.4-8.2) g/dL Albumin 3.2 L 3.1 L (3.4-5.0) g/dL Intake and Output 07/21/18 07/21/18 07/21/18 06:59 14:59 22:59 Intake Total 450 / 450 Output Total 1250 / 1250 275 / 275 Balance -800 / -800 -275 / -275 Intake: Oral 0 / 0 Other 50 / 50 Rbc As-3 Leukoreduced Unit 50 / 50 [id number] Intake (Blood Product) Amt 400 / 400 Rbc As-3 Leukoreduced Unit 400 / 400 [id number] Output: Urine 1250 / 1250 275 / 275 Other: Other Intake Source Rbc As-3 Leukoreduced Unit Saline Solution [id number] # Voids 1 Weight 98.6 kg - Imaging and Cardiology Imaging: Impressions Chest X-Ray 07/20/18 11:31 CONCLUSION: Cardiomegaly with moderate congestive failure Chest CTA 07/20/18 12:37 CONCLUSION: 1. This study is negative for pulmonary embolism. 2. Small pericardial effusion. 3. Small bilateral pleural effusions. 4. Cardiomegaly and coronary artery calcifications. 5. Minimal scattered atelectatic changes bilaterally. 6. Hepatosplenomegaly. 7. Small hiatal hernia. Assessment and Plan - Assessment (1) Shortness of breath Code(s): R06.02 - Shortness of breath Status: Acute (2) Congestive heart failure Code(s): I50.9 - Heart failure, unspecified Status: Acute (3) Acute anemia Code(s): D64.9 - Anemia, unspecified Status: Acute (4) Symptomatic anemia Code(s): D64.9 - Anemia, unspecified Status: Acute - Plan 1.) CHF - dyspnea improved s/p transfusion to hgb > 8.0, rec f/u bnp and echo
--- NOTE | 2018-07-22 01:01 | ECG ---
Date Performed: 07/20/2018 Time Performed: 16:11:27 PTAGE: 77 years EKG: Sinus rhythm NON-SPECIFIC ST/T WAVE CHANGES NO PREVIOUS TRACING DOCTOR: Devyn Lundy Interpretating Date/Time 07/22/2018 00:59:31
[2018-07-22 07:46] LABS: Baso # (Auto) 0.2 th/mm3 (0.0-0.2); Baso % (Auto) 1.9 % (0.0-2.0); Eos # (Auto) 0.3 th/mm3 (0.0-0.4); Eos % (Auto) 3.6 % (0.0-4.0); Hematocrit 28.9 % (39.0-51.0); Hemoglobin 8.8 gm/dL (13.0-17.0); Lymph % (Auto) 43.2 % (9.0-44.0); Mean Corpuscular Hemoglobin 23.7 pg (27.0-34.0); Mean Corpuscular Volume 77.7 fL (80.0-100.0); Mean Platelet Volume 8.6 fL (7.0-11.0); Mono # (Auto) 0.7 th/mm3 (0.0-0.9); Mono % (Auto) 7.3 % (0.0-8.0); Neut # (Auto) 4.1 th/mm3 (1.8-7.7); Platelet Count 226 th/mm3 (150-450); Red Blood Count 3.72 mil/mm3 (4.50-5.90); Red Cell Distribution Width 19.6 % (11.6-17.2); White Blood Count 9.3 th/mm3 (4.0-11.0)
[2018-07-22 07:54] LABS: Mean Corpuscular HGB Conc 30.5 % (32.0-36.0)
[2018-07-22 07:56] LABS: Potassium 3.3 meq/L (3.5-5.1)
[2018-07-22 08:04] LABS: Calcium 7.5 mg/dL (8.5-10.1); Carbon Dioxide 27.1 meq/L (21.0-32.0)
[2018-07-22] MEDS: amLODIPine 5 MG Tablet PO SCH (08:12)
[2018-07-22] MEDS: Insulin NovoLOG Aspart Correctional Sugar Inj SQ SCH ×3 (08:19→17:58)
[2018-07-22] MEDS: Ferrous Sulfate 325 MG Tablet PO SCH ×2 (08:20→09:31)
[2018-07-22 09:24] LABS: Platelet Estimate Normal (Normal); Platelet Morphology Normal (Normal)
[2018-07-22] MEDS: Pantoprazole Inj 40 MG Vial IV.PUSH SCH (09:29)
[2018-07-22] MEDS: Lisinopril 20 MG Tablet PO SCH (09:30)
--- NOTE | 2018-07-22 09:55 | ECHRPT ---
Indication: CONCLUSIONS The left ventricular systolic function is low normal with an estimated ejection fraction in the rang e of 50- 55%. Doppler parameters are consistent with impaired left ventricular relaxtion (grade 1 diastolic dysfun ction). Trace mitral valve regurgitation. Trace aortic valve regurgitation. There is mild tricuspid valve regurgitation. Possible left pleural effusion. BP: / HR: Rhythm: Sinus MEASUREMENTS (Male / Female) Normal Values Technical Quality:Fair 2D ECHO LV Diastolic Diameter PLAX 5.5 cm 4.2 - 5.9 / 3.9 - 5.3 cm LV Systolic Diameter PLAX 4.4 cm IVS Diastolic Thickness 1.8 cm 0.6 - 1.0 / 0.6 - 0.9 cm LVPW Diastolic Thickness 1.8 cm 0.6 - 1.0 / 0.6 - 0.9 cm LV Relative Wall Thickness 0.7 RV Internal Dim ED PLAX 3.4 cm LVOT Diameter 2.3 cm Aortic Root Diameter 2.8 cm LA Systolic Diameter LX 4.4 cm 3.0 - 4.0 / 2.7 - 3.8 cm LV Ejection Fraction MOD BP 54.8 % >= 55 % LV Ejection Fraction MOD 4C 57.3 % LV Ejection Fraction 4C AL 57.8 % LV Ejection Fraction MOD 2C 46.8 % LV Ejection Fraction 2C AL 48.1 % M-MODE Aortic Root Diameter MM 3.7 cm LA Systolic Diameter MM 3.6 cm LA Ao Ratio MM 1.0 AV Cusp Separation MM 1.9 cm DOPPLER AV Peak Velocity 134.0 cm/s AV Peak Gradient 7.2 mmHg AI Peak Velocity 213.0 cm/s AI Peak Gradient 18.1 mmHg AI Pressure Half Time 1066.0 ms LVOT Peak Velocity 112.0 cm/s LVOT Peak Gradient 5.0 mmHg AV Area Cont Eq pk 3.5 cm Mitral E Point Velocity 78.5 cm/s Mitral A Point Velocity 88.8 cm/s Mitral E to A Ratio 0.9 LV E' Lateral Velocity 5.9 cm/s Mitral E to LV E' Lateral Ratio 13.4 LV E' Septal Velocity 4.9 cm/s Mitral E to LV E' Septal Ratio 16.1 TV Peak Velocity 166.0 cm/s TR Peak Velocity 250.0 cm/s TR Peak Gradient 25.0 mmHg Right Atrial Pressure 10.0 mmHg Pulmonary Artery Systolic Pressu 35.0 mmHg Right Ventricular Systolic Press 35.0 mmHg PV Peak Velocity 97.2 cm/s PV Peak Gradient 3.8 mmHg FINDINGS LEFT VENTRICLE The left ventricular systolic function is low normal with an estimated ejection fraction in the rang e of 50- 55%. Wall thickness is normal. Normal left ventricular size. Doppler parameters are consistent with impaired left ventricular relaxtion (grade 1 diastolic dysfun ction). RIGHT VENTRICLE Normal right ventricular size and systolic function. LEFT ATRIUM The left atrial size is mildly dilated. RIGHT ATRIUM The right atrial size is normal. ATRIAL SEPTUM Normal atrial septal thickness without atrial level shunting by limited color doppler interrogation. AORTA The aortic root and proximal ascending aorta are normal in size on limited imaging. MITRAL VALVE Structurally normal mitral valve. Trace mitral valve regurgitation. No mitral valve stenosis. AORTIC VALVE Trileaflet aortic valve. Trace aortic valve regurgitation. No aortic valve stenosis. TRICUSPID VALVE Structurally normal tricuspid valve. There is mild tricuspid valve regurgitation. No tricuspid valve stenosis. The estimated pulmonary arterial pressure is 35 mmHg. PULMONARY VALVE No pulmonary valve regurgitation or stenosis. VESSELS The inferior vena cava is normal in size. PERICARDIUM No pericardial effusion. OTHER FINDINGS Possible left pleural effusion Devyn Lundy DO (Electronically Signed) Final Date:22 July 2018 09:55
--- NOTE | 2018-07-22 10:53 | P.PNIM ---
Subjective Interval history: 77-year-old male who is seen examined today for follow-up on congestive heart failure, GI bleed, anemia. Patient appears to be doing well. He did undergo colon prep for procedure today. He is resting comfortably. Vital signs are stable. Patient remains afebrile. Physical Exam Vital signs: Last Vital Signs Temp 97.7 F 07/22/18 08:25 Pulse 107 H 07/22/18 08:25 Resp 16 07/22/18 08:25 BP 164/74 H 07/22/18 08:25 Pulse Ox 94 L 07/22/18 08:25 Intake & Output 07/20/18 07/21/18 07/22/18 07/23/18 06:59 06:59 06:59 06:59 Intake Total 980 / 980 5970 / 5970 Output Total 3550 / 3550 1075 / 1075 Balance -2570 / -2570 4895 / 4895 Weight 98.6 kg 92.7 kg Narrative: GENERAL: Well-developed, well-nourished, in no acute distress. alert and orientated HEENT: Head is normocephalic without any lesions or masses noted. Facial features are symmetric. Eyes: Extraocular muscles are intact. Conjunctivae were clear. NECK: Supple without any masses. Trachea midline no deviation. No JVD, CARDIAC: Regular rhythm, regular rate. S1/S2 are heard. No murmurs gallops or rubs. LUNGS: Clear to auscultation bilaterally. No wheeze, rhonchi or rales. No use of accessory muscles on inspiration or expiration. ABDOMEN: Soft, nontender. Nondistended. Bowel sounds heard in all 4 quadrants. No organomegaly or masses. Negative rebound, negative guarding EXTREMITIES: No edema, pulses are equal bilaterally. No cyanosis or clubbing NEUROLOGY: Mood and affect appear appropriate. Cranial nerves II through XII grossly intact. Moving all extremities, speech is clear Results Labs CBC & Chem 7: 07/22/18 06:33 07/22/18 06:33 Assessment and Plan (1) Shortness of breath: Code(s): R06.02 - Shortness of breath Status: Acute (2) Congestive heart failure: Code(s): I50.9 - Heart failure, unspecified Status: Acute (3) Acute anemia: Code(s): D64.9 - Anemia, unspecified Status: Acute (4) Symptomatic anemia: Code(s): D64.9 - Anemia, unspecified Status: Acute Plan Congestive heart failure, acute -Patient with elevated BNP, chest x-ray with cardiomegaly and moderate congestive heart failure, CT scan does show small pericardial effusion, bilateral pleural effusions -Continue diuresis Lasix 40 mg IV twice daily with supplemental potassium -Echocardiogram showed ejection fraction 50-55% with trace of mitral valve, aortic valve regurgitation. Mild tricuspid valve regurgitation, possible left pleural effusion -Patient has been ruled out for acute coronary event with serial cardiac enzymes remain negative -Patient continued on his beta-itzel and MARY inhibitor -Consulted cardiology for further recommendations, -Strict input and output with fluid restriction -Discussed with cardiology who reviewed patient's records, echocardiogram and indicated patient is at moderate risk for noncardiac procedure. Anemia with heme positive stool and melena -Patient also with decreased MCV which could also be related to iron deficiency -Anemia studies are indicating iron deficient anemia -Continue ferrous sulfate 3 and 25 mg twice daily -Continue Protonix IV twice daily -Transfuse to keep hemoglobin above 8.0 -Consulted GI who plans to perform EGD/colonoscopy -Awaiting endoscopy/colonoscopy Accelerated hypertension -Continue home medications -We will need to adjust medications for improved blood pressure control Diabetes -Accu-Cheks with sliding scale insulin DVT prevention -Sequential compression devices, avoid chemical prophylaxis secondary to GI bleed Discharge planning Plans for EGD/colonoscopy today and discharge after that if cleared by quilt maker Progress Note: Quality VTE Deep Vein Thrombosis/Pulmonary Embolism Present on Admission: No _ (1) Congestive heart failure Qualifiers: Heart failure chronicity: Heart failure type:
--- NOTE | 2018-07-22 12:13 | P.PNCA ---
Subjective Interval history: assymptomatic in nad Medications and Allergies Active Medications: Active Medications Amlodipine Besylate (Norvasc) 5 mg PO DAILY [facility] Last Admin: 07/22/18 08:12 Dose: 5 mg Atenolol (Tenormin) 50 mg PO DAILY [facility] Last Admin: 07/22/18 08:12 Dose: 50 mg Dextrose (D50w Vial) 50 ml IV.PUSH UNSCH PRN PRN Reason: PER HYPOGLYCEMIA PROTOCOL Ferrous Sulfate (Ferosul) 325 mg PO BID [facility] Last Admin: 07/22/18 09:31 Dose: 325 mg Furosemide (Lasix Inj) 40 mg IV.PUSH BID@0900,1800 [facility] Last Admin: 07/22/18 09:30 Dose: 40 mg Glucagon (Glucagon Inj) 1 mg OTHER PRN PRN PRN Reason: for Hypoglycemia Protocol Insulin Aspart (Novolog Insulin Correctional Sugar Inj) 0 unit SQ ACHS [facility]; Protocol Last Admin: 07/22/18 08:19 Dose: Not Given Lisinopril (Prinivil) 40 mg PO DAILY [facility] Last Admin: 07/22/18 09:30 Dose: 40 mg Pantoprazole Sodium (Protonix Inj) 40 mg IV.PUSH BID [facility] Last Admin: 07/22/18 09:29 Dose: 40 mg Potassium Chloride (Klor-Con 10) 10 meq PO BID [facility] Last Admin: 07/22/18 09:31 Dose: 10 meq Sodium Chloride (Ns Flush) 2 ml IV.FLUSH BID [facility] Last Admin: 07/22/18 08:21 Dose: 2 ml Sodium Chloride (Ns Flush) 2 ml IV.FLUSH PRN PRN PRN Reason: FLUSH AFTER USING IV ACCESS Allergies Allergy/AdvReac Type Severity Reaction Status Date / Time tetanus and diphtheria Allergy Mild Anaphylaxis Verified 07/20/18 11:07 toxoids codeine Allergy Swelling Verified 07/20/18 11:10 Home Medications Medication Instructions Recorded Confirmed Type allopurinol 300 mg PO DAILY 07/20/18 07/20/18 History atenolol 25 mg PO DAILY 07/20/18 07/20/18 History indomethacin 25 mg PO DAILY PRN 07/20/18 07/20/18 History lisinopril [Zestril] 50 mg PO DAILY 07/20/18 07/20/18 History omeprazole 20 mg PO DAILY 07/20/18 07/20/18 History Physical Exam Vital signs: Vital Signs 07/21/18 16:00 07/21/18 19:42 07/21/18 20:00 Temperature 96 F L 97.6 F Pulse Rate 69 64 Respiratory Rate 20 20 Blood Pressure 174/86 H 157/77 H Pulse Oximetry 96 96 93 L 07/21/18 20:15 07/21/18 23:58 07/22/18 00:10 Temperature 97.2 F L Pulse Rate 64 63 64 Respiratory Rate 20 Blood Pressure 168/79 H Pulse Oximetry 96 07/22/18 02:28 07/22/18 04:00 07/22/18 04:18 Temperature 96.5 F L Pulse Rate 65 66 Respiratory Rate 18 20 Blood Pressure 170/82 H Pulse Oximetry 95 07/22/18 07:50 07/22/18 08:00 07/22/18 08:25 Temperature 96.5 F L 97.7 F Pulse Rate 67 107 H Respiratory Rate 16 Blood Pressure 164/79 H 164/74 H Pulse Oximetry 97 94 L 94 L Intake & Output 07/21/18 07/22/18 07/22/18 18:59 06:59 18:59 Intake Total 5720 / 5720 250 / 250 Output Total 275 / 275 800 / 800 Balance 5445 / 5445 -550 / -550 Weight 92.7 kg Intake: IV 250 / 250 Oral 1720 / 1720 Oral Supplement 4000 / 4000 Output: Urine 275 / 275 800 / 800 Other: # Voids 6 4 # Bowel Movements 13 - Constitutional no acute distress - Routine HEENT Exam Head: Present: normocephalic - Routine Neck Exam Present: supple - Routine Respiratory Exam Present: CTA bilaterally - Routine Cardiovascular Exam Present: S1, S2 - Routine Abdominal Exam Present: soft - Routine Extremities Exam Comments: no [email or web address] Results 07/22/18 06:33 07/22/18 06:33 Cardiac Enzymes 07/20/18 07/20/18 07/20/18 Range/Units 11:45 11:45 17:35 AST 18 (15-37) U/L Lactate Dehydrogenase 138 (87-241) U/L Troponin I Less than 0.02 L Less than 0.02 L (0.02-0.05) ng/mL B-Natriuretic Peptide 328 H (0-100) pg/mL 07/20/18 07/21/18 07/22/18 Range/Units 22:25 04:05 06:33 AST 14 L (15-37) U/L Lactate Dehydrogenase (87-241) U/L Troponin I Less than 0.02 L Less than 0.02 L (0.02-0.05) ng/mL B-Natriuretic Peptide 229 H (0-100) pg/mL Coagulation 07/20/18 07/22/18 Range/Units 11:45 06:33 B-Natriuretic Peptide 328 H 229 H (0-100) pg/mL CBC 07/21/18 07/22/18 Range/Units 04:05 06:33 WBC 9.6 9.3 (4.0-11.0) th/mm3 RBC 3.53 L 3.72 L (4.50-5.90) mil/mm3 Hgb 8.6 L 8.8 L (13.0-17.0) gm/dL Hct 27.4 L 28.9 L (39.0-51.0) % Plt Count 212 226 (150-450) th/mm3 Neut # (Auto) 5.0 4.1 (1.8-7.7) th/mm3 Lymph # (Auto) 3.6 4.0 (1.0-4.8) th/mm3 [place] # (Auto) 0.6 0.7 (0.0-0.9) th/mm3 Eos # (Auto) 0.2 0.3 (0.0-0.4) th/mm3 Baso # (Auto) 0.2 0.2 (0.0-0.2) th/mm3 Comprehensive Metabolic Panel 07/20/18 07/21/18 07/22/18 Range/Units 11:45 04:05 06:33 Sodium 142 141 (136-145) meq/L Potassium 3.5 D 3.3 L (3.5-5.1) meq/L Chloride 107 105 (98-107) meq/L Carbon Dioxide 25.3 27.7 27.1 (21.0-32.0) meq/L BUN 12 13 10 (7-18) mg/dL Creatinine 1.10 1.20 1.10 (0.60-1.30) mg/dL Calcium 7.4 L* 7.6 L 7.5 L (8.5-10.1) mg/dL AST 18 14 L (15-37) U/L ALT 14 13 (12-78) U/L Alkaline Phosphatase 110 109 (45-117) U/L Total Protein 6.9 6.8 (6.4-8.2) g/dL Albumin 3.2 L 3.1 L (3.4-5.0) g/dL Intake and Output 07/21/18 07/22/18 07/22/18 22:59 06:59 14:59 Intake Total 5720 / 5720 250 / 250 Output Total 800 / 800 Balance 5720 / 5720 -550 / -550 Intake: IV 250 / 250 Oral 1720 / 1720 Oral Supplement 4000 / 4000 Output: Urine 800 / 800 Other: # Voids 6 4 # Bowel Movements 13 Weight 92.7 kg - Imaging and Cardiology Imaging: Impressions Chest CTA 07/20/18 12:37 CONCLUSION: 1. This study is negative for pulmonary embolism. 2. Small pericardial effusion. 3. Small bilateral pleural effusions. 4. Cardiomegaly and coronary artery calcifications. 5. Minimal scattered atelectatic changes bilaterally. 6. Hepatosplenomegaly. 7. Small hiatal hernia. Assessment and Plan - Assessment (1) Shortness of breath Code(s): R06.02 - Shortness of breath Status: Acute (2) Congestive heart failure Code(s): I50.9 - Heart failure, unspecified Status: Acute (3) Acute anemia Code(s): D64.9 - Anemia, unspecified Status: Acute (4) Symptomatic anemia Code(s): D64.9 - Anemia, unspecified Status: Acute - Plan 1.) CHF - dyspnea improved s/p transfusion to hgb > 8.0, ef=50-55%, assymptomatic 07/22/18, moderate risk for noncardiac procedure; patient advised by me to make appointment with me in my office in my office ric[place], he understands
[2018-07-22] MEDS ORDERED: Lidocaine PF 1% Inj 5 ML Syringe OTHER ONE (15:56)
--- NOTE | 2018-07-22 17:07 | P.PCN ---
Date of procedure: 07/22/18 Pre-op diagnosis: Anemia and hematochezia Post-op diagnosis: other (Gastric polyps, gastritis, hiatal hernia, diverticulosis, internal hemorrhoids.) Procedure: INDICATIONS: Anemia and hematochezia PROCEDURES PERFORMED; UPPER ENDOSCOPY with biopsy COLONOSCOPY diagnostic with: Lavage After informing the patient about procedure and possible complications consent was signed. history and physical were updated. Patient was taken to the procedure room and placed in position. Time out was completed. ANESTHESIA: Adequate sedation was performed by anesthesia provider. UPPER ENDOSCOPY: The scope was placed in the mouth advanced under video guide to the second portion of the duodenum, then the scope was withdrawal to the stomach and retro-flexion was performed, the scope was withdrawal to the esophagus then out of the mouth without any immediate complication COLONOSCOPY: A rectal exam was performed and then the scope was placed in the rectum advanced under video guidance to the cecum. The cecum was identified by the ileo-cecal valve and appendiceal orifice. The scope was then withdrawn slowly with examination of the mucosa to the rectum. Retro-flexion was performed in the rectum, the scope was withdrawal without any immediate complications. FINDINGS: COLONOSCOPY PREP: Retained stool that was lavaged to clear with 3 L of lavage and aspiration resulting in an adequate bowel preparation TERMINAL ILEUM: Normal for 10 cm COLON: Other than retained stool there was normal-appearing mucosa. There was moderate diverticulosis seen from the distal transverse colon through the sigmoid colon. The diverticuli were medium-sized. There are no stigmata of recent bleeding. There is no petechiae and no evidence of recent bleeding. There were no colon polyps or masses seen. There was no active inflammation seen in the colon. There is a normal vascular pattern apparent throughout the colon RECTUM: Retroflexed in the rectum revealed small internal hemorrhoids without evidence or stigmata of recent bleeding ESOPHAGUS: Z line was identified at 38 cm there is normal esophageal mucosa throughout. STOMACH: Direct and retroflexed views were obtained throughout the stomach. Retroflex examination revealed a 3 cm hiatal hernia. There was diffuse erythema with seen throughout the distal body and antrum without ulceration or erosion. There were multiple gastric polyps identified. Too numerous to count. The polyps ranged in size from 3 up to 8 mm. Multiple biopsies were obtained from the gastric antrum and body from the mucosa. 5 polyps were either removed or biopsied. The largest polyps were targeted. DUODENUM: There was no mucosa seen from the bulb through the second portion COMPLICATIONS: Blood loss minimal with biopsies. The patient otherwise tolerated procedure without difficulty. IMRPESSION: Multiple gastric polyps were identified with mild gastritis in the stomach. Diverticulosis was identified in the colon. The patient does have internal hemorrhoids. The gastric polyps could be a source of chronic bleeding. They are most likely benign gastric polyps. The hematochezia was likely related to the internal hemorrhoid versus the diverticular disease which could have been bleeding previously RECOMMENDATIONS: 1- Supportive care 2- ok to transfer to recovery area then discharge per protocol 3- Repeat colonoscopy in 10 years 4- Resume preoperative diet 5- Resume preoperative medications. 6- The patient is provided with postprocedure educational materials and contact information incase of an emergency. 7- The patient should follow-up in the office with Dr. Latasha sandoval in 4-6 weeks. 8- EGD as necessary. No further treatment of the gastric polyps is needed. 9-pathology is pending and can be reviewed with the patient at his follow-up office visit 10-patient is advised to avoid nonsteroidal anti-inflammatory drugs and blood thinners for the next 5 days due to the multiple biopsies obtained in the stomach to avoid increased risk of bleeding. 11-patient is ready for discharge from a gastroenterology point of view. Anesthesia: MAC Surgeon: King Castro Pathology: other (Gastric antrum, Gastric body, gastric polyps) Condition: stable Disposition: floor
--- NOTE | 2018-07-22 18:11 | P.DS ---
DS: Providers Date of admission: 07/20/18 16:02 Primary care physician: UNKNOWN Consults: 07/20/18 15:52 Consult to Gastroenterology Routine Consulting Provider: Eliecer Pagan V Reason for Consultation: Anemia with heme positive stool Notified:: Office Date Notified:: 07/20/18 Time Notified:: 16:16 Ordering Provider: DARCY 07/20/18 15:57 Consult to Cardiology Routine Consulting Provider: Nico Esparza Does the patient have a Air Carrier Maintenance Inspector who follows them?: No Preferred Director Of Real Estate:: Underbaster Physician Reason for Consultation: New onset CHF, Notified:: Physician Spoke with:: lft msg Date Notified:: 07/20/18 Time Notified:: 16:05 Ordering Provider: DARCY Anticipated date of discharge: 07/22/18 Brief History from admission: 77-year-old male with known history of hypertension, borderline diabetes, gouty arthritis who presented to the hospital for evaluation of shortness of breath. Patient has recently moved down here and has not located a primary medical doctor and he will be getting [place] [facility] insurance at the first of the year. The patient indicates her last 2 weeks he has had progressive shortness of breath and dyspnea, dyspnea on exertion, orthopnea. Patient has been sleeping in a recliner in order to be able to breathe at night. He is only able to walk approximately 10 feet without having to stop and take a break. The patient came to the emergency department for evaluation and was found to have multiple medical problems with congestive heart failure, accelerated hypertension, anemia with heme positive stool. It is recommended by the ER physician that the patient be admitted for further evaluation and management. The patient denies any chest pain, nausea, vomiting, diaphoresis. He has been experiencing shortness of breath, dyspnea on exertion, orthopnea. He did notice dark colored stools this morning. The patient does take indomethacin on a regular basis for his gouty arthritis. He states last time he had endoscopy was 5 years ago at that time he states that he had esophageal dilatation done at least 3 times. DS: Diagnosis Discharge Diagnosis (1) Shortness of breath: Status: Acute (2) Congestive heart failure: Status: Acute (3) Acute anemia: Status: Acute (4) Symptomatic anemia: Status: Acute DS: Summary 77-year-old male who originally presented to hospital for evaluation of 2-week history of shortness of breath, dyspnea on exertion, orthopnea. Patient was sleeping in recliner prior to coming to the hospital and was only able to walk approximate 10 feet without having to stop and take a break. Patient came to the emergency department found to have multiple medical problems with possible congestive heart failure, axillary hypertension, anemia with heme positive stool. Prior transfusion of 2 units packed red blood cells in order to bring his hemoglobin above 8.0. Full anemia studies were performed which did indicate iron deficient anemia. Patient was started on ferrous sulfate 325 mg twice daily. GI consultation was performed and patient did undergo endoscopy today which did show gastric polyps with mild gastritis, diverticulosis, internal hemorrhoids. There indicating the gastric polyps could have been the source of his chronic bleeding. In reference to the patient's congestive heart failure patient was admitted with diuresis. Cardiology evaluated patient indicated that his dyspnea was likely component of the systematic anemia. His symptoms improved after transfusion. Patient clinically stable at this time. Hemoglobin has remained stable during his stay in the hospital after transfusion. Patient has not had any recurrent shortness of breath or dyspnea. Echocardiogram was performed which did show ejection fraction 50-55% with normal systolic function. Patient has been cleared by cardiology and gastroneurology for discharge and outpatient follow-up. We will plan discharge accordingly. Time Spent with Patient Total time spent providing and/or coordinating discharge services: Greater than 30 minutes Quality: VTE Deep Vein Thrombosis/Pulmonary Embolism Present on Admission: No Exam Narrative Exam Narrative: GENERAL: Well-developed, well-nourished, in no acute distress. alert and orientated HEENT: Head is normocephalic without any lesions or masses noted. Facial features are symmetric. Eyes: Extraocular muscles are intact. Conjunctivae were clear. NECK: Supple without any masses. Trachea midline no deviation. No JVD, CARDIAC: Regular rhythm, regular rate. S1/S2 are heard. No murmurs gallops or rubs. LUNGS: Clear to auscultation bilaterally. No wheeze, rhonchi or rales. No use of accessory muscles on inspiration or expiration. ABDOMEN: Soft, nontender. Nondistended. Bowel sounds heard in all 4 quadrants. No organomegaly or masses. Negative rebound, negative guarding EXTREMITIES: No edema, pulses are equal bilaterally. No cyanosis or clubbing NEUROLOGY: Mood and affect appear appropriate. Cranial nerves II through XII grossly intact. Moving all extremities, speech is clear Results Pending studies at discharge: Pending at discharge 07/22/18 Surgical [PTH] Routine Labs on day of discharge: Labs from last 24 hours 07/22/18 07/22/18 07/22/18 17:51 12:34 06:33 CBC w Diff Slide review pending WBC 9.3 RBC 3.72 L Hgb 8.8 L Hct 28.9 L MCV 77.7 L MCH 23.7 L MCHC 30.5 L RDW 19.6 H Plt Count 226 MPV 8.6 Neut % (Auto) 44.0 Lymph % (Auto) 43.2 [place] % (Auto) 7.3 Eos % (Auto) 3.6 Baso % (Auto) 1.9 Neut # (Auto) 4.1 Lymph # (Auto) 4.0 [place] # (Auto) 0.7 Eos # (Auto) 0.3 Baso # (Auto) 0.2 WBC Differential . Diff Scan Auto diff confirmed Differential Comment . Platelet Estimate Normal Platelet Morphology Normal Sodium Potassium Chloride Carbon Dioxide Anion Gap BUN Creatinine Estimated GFR POC Glucose 109 105 Random Glucose Calcium B-Natriuretic Peptide 07/22/18 07/22/18 07/22/18 06:33 06:33 06:14 CBC w Diff WBC RBC Hgb Hct MCV MCH MCHC RDW Plt Count MPV Neut % (Auto) Lymph % (Auto) [place] % (Auto) Eos % (Auto) Baso % (Auto) Neut # (Auto) Lymph # (Auto) [place] # (Auto) Eos # (Auto) Baso # (Auto) WBC Differential Diff Scan Differential Comment Platelet Estimate Platelet Morphology Sodium 141 Potassium 3.3 L Chloride 105 Carbon Dioxide 27.1 Anion Gap 9 BUN 10 Creatinine 1.10 Estimated GFR 65 L POC Glucose 95 Random Glucose 85 Calcium 7.5 L B-Natriuretic Peptide 229 H 07/21/18 22:17 CBC w Diff WBC RBC Hgb Hct MCV MCH MCHC RDW Plt Count MPV Neut % (Auto) Lymph % (Auto) [place] % (Auto) Eos % (Auto) Baso % (Auto) Neut # (Auto) Lymph # (Auto) [place] # (Auto) Eos # (Auto) Baso # (Auto) WBC Differential Diff Scan Differential Comment Platelet Estimate Platelet Morphology Sodium Potassium Chloride Carbon Dioxide Anion Gap BUN Creatinine Estimated GFR POC Glucose 77 Random Glucose Calcium B-Natriuretic Peptide Impressions ITS Impressions Chest X-Ray 07/20/18 11:31 CONCLUSION: Cardiomegaly with moderate congestive failure Chest CTA 07/20/18 12:37 CONCLUSION: 1. This study is negative for pulmonary embolism. 2. Small pericardial effusion. 3. Small bilateral pleural effusions. 4. Cardiomegaly and coronary artery calcifications. 5. Minimal scattered atelectatic changes bilaterally. 6. Hepatosplenomegaly. 7. Small hiatal hernia. Discharge Plan Discharge Disposition Patient Disposition: Discharge Home Discharge Condition Condition: Stable Discharge Order Discharge Orders: Discharge Order (Routine); Ordered 07/22/18 Ordered By: Haresh Gillespie Discharge Details Anticipated Discharge Date: 07/22/18 Physicians Team ED Provider: Jeffery Hidalgo Primary Care Provider: UNKNOWN, Attending Provider: Doug Salas Other Providers: Nico Esparza ; Eliecer Pagan V Rxs /Orders / Referrals /Forms Prescriptions: New lisinopril 20 mg Tablet 40 mg PO DAILY Qty: 30 RF: 0 amlodipine [Norvasc] 5 mg Tablet 5 mg PO DAILY Qty: 30 RF: 0 ferrous sulfate [FeroSul] 325 mg (65 mg iron) Tablet 325 mg PO BID Qty: 60 RF: 0 atenolol 50 mg Tablet 50 mg PO DAILY Qty: 30 RF: 0 Continue omeprazole 20 mg Capsule,Delayed Release(Dr/Ec) 20 mg PO DAILY RF: 0 allopurinol 300 mg Tablet 300 mg PO DAILY RF: 0 Discontinued atenolol 25 mg Tablet 25 mg PO DAILY RF: 0 indomethacin 25 mg Capsule 25 mg PO DAILY PRN (Reason: Pain) RF: 0 lisinopril [Zestril] 40 mg Tablet 50 mg PO DAILY RF: 0 Referrals: Nico Esparza MD [Physician] - See Instructions (Please follow-up with cardiology in 1 week) Eliecer Pagan MD [Physician] - See Instructions (Please follow-up with GI in 2 weeks) UNKNOWN, [Primary Care Provider] - See Instructions Discharge Interventions Interventions: Discharge Planning - Case Management Last Done: 07/21/18 09:49 Status ED Status: Left Department
--- NOTE | 2018-07-23 00:48 | ECG ---
Date Performed: 07/20/2018 Time Performed: 22:22:34 PTAGE: 77 years EKG: Sinus rhythm WITH OCCASIONAL SUPRAVENTRICULAR PREMATURE COMPLEXES NONSPECIFIC T-WAVE ABNORMALITY BORDERLINE ECG W ARNING: DATA QUALITY MAY AFFECT INTERPRETATION PREVIOUS TRACING : 07/20/2018 16.11 Since the previous tracing, no significant change not ed DOCTOR: Devyn Lundy Interpretating Date/Time 07/23/2018 00:47:29
--- NOTE | 2018-07-23 01:04 | ECG ---
Date Performed: 07/21/2018 Time Performed: 04:05:06 PTAGE: 77 years EKG: Sinus rhythm MODERATE INTRAVENTRICULAR CONDUCTION DELAY NONSPECIFIC T-WAVE ABNORMALITY BORDERLINE ECG PREVIOUS TRACING : 07/20/2018 22.22 Since the previous tracing, no significant change noted DOCTOR: Devyn Lundy Interpretating Date/Time 07/23/2018 01:02:27
== END 2018-07-22 18:38 | disposition home or self-care (01) | DRG 293 ==
LOC: PHED 11:02 → PHEDA 16:02 → PH3 17:10
PROVIDERS: ADMIT Hospitalist; ATTEND Hospitalist
PROC: PANENDO (2018-07-22 15:57)
PROC: COLONOS (2018-07-22 15:57)
DX: E83.51 Hypocalcemia; M10.9 Gout, unspecified; I11.0 Hypertensive heart disease with heart failure; D50.9 Iron deficiency anemia, unspecified; I50.9 Heart failure, unspecified; K44.9 Diaphragmatic hernia without obstruction or gangrene; K29.70 Gastritis, unspecified, without bleeding; Z53.09 Procedure and treatment not carried out because of other contraindication; K31.7 Polyp of stomach and duodenum; E88.09 Other disorders of plasma-protein metabolism, not elsewhere classified; Z87.891 Personal history of nicotine dependence; E11.9 Type 2 diabetes mellitus without complications; K57.30 Diverticulosis of large intestine without perforation or abscess without bleeding; K64.8 Other hemorrhoids
CPT/HCPCS: 36430; 71010; 71045; 71275; 80048; 80053; 81001; 82550; 82607; 82728; 82746; 82948; 82962; 83010; 83520; 83540; 83550; 83615; 83880; 84484; 85025; 85044; 85379; 86850; 86900; 86901; 86923; 88305; 88312; 90774; 90775; 93005; 93306; 96374; 96375; 99285; C8952; C9113; J0360; J1940; J2704; J7050; P9016; Q9967